=== PATIENT | male | born 1930 | race Caucasian/White ===

== ENCOUNTER → 2016-05-23 | Outpatient (REF) | payer MEDICARE ==
[~2016-05-23] MED LIST: /ESOM40CA OR; CELE20TA OR; KEPPRA PO; MEGACE ES PO; MULTIVIT PO; SYNT50TA OR; THIA100T OR
[2016-05-27 00:07] LABS: PHENOBARBITAL (PRIMIDONE) None Detected ug/mL (15-40)
== END ==
LOC: M LAB REF 12:38
PROVIDERS: ATTEND Internal Medicine
DX: G25.0 Essential tremor (principal)

== ENCOUNTER 2016-07-23 16:43 | Inpatient (IN) | payer MEDICARE ==
[~2016-07-23] VITALS: Ht 177.8 cm; Wt 95.9 kg
[2016-07-23] MEDS ORDERED: PRIM250T5 PO (17:13)
[2016-07-23] MEDS ORDERED: VITA100T2 PO (17:13)
[2016-07-23] MEDS ORDERED: ERGO500014 PO (17:13)
[2016-07-23] MEDS ORDERED: VALS1TAB46 PO (17:26)
[2016-07-23] MEDS ORDERED: MOBI7.5T10 PO (17:26)
[2016-07-23] MEDS ORDERED: AMLO5TAB2 PO ×2 (17:26→19:31)
[2016-07-23] MEDS ORDERED: ATOR1TAB19 PO (17:26)
[2016-07-23] MEDS ORDERED: NS 1,000 ML IV ONE (18:15)
[2016-07-23] MEDS ORDERED: AMLO25TA PO (18:16)
[2016-07-23 18:22] LABS: BASO % 0.4 % (0.0-1.0); EOS # 0.1 K/mm3 (0.0-0.50); EOS % 2.8 % (0.0-3.0); LARGE UNSTAINED CELL # 0.2 K/mm3 (0.0-0.4); LARGE UNSTAINED CELL % 5.4 % (0.0-4.0); LYMPH # 1.1 K/mm3 (1.5-4.5); LYMPH % 24.1 % (24.0-44.0); MEAN CORPUSCULAR HEMOGLOBIN 29.5 pg (27.0-33.0); MEAN CORPUSCULAR VOLUME 89.3 fl (80.0-96.0); MONO # 0.4 K/mm3 (0.0-0.8); NEUTROPHILS # 2.6 K/mm3 (1.8-7.7); NEUTROPHILS % 58.2 % (36.0-66.0); PLATELET COUNT, AUTOMATED 205 k/mm3 (150-450); WHITE BLOOD COUNT 4.4 K/mm3 (4.0-10.0)
[2016-07-23 18:41] LABS: CALCIUM LEVEL 8.4 MG/DL (8.8-10.2); CREATININE FOR GFR 1.57 MG/DL (0.70-1.30); GLOMERULAR FILTRATION RATE 45.1 (>35); POTASSIUM SERUM 4.2 MEQ/L (3.5-5.1)
[2016-07-23] MEDS ORDERED: VITMTA PO (19:31)
[2016-07-23] MEDS ORDERED: [UNRECOGNIZED DRUG - CODE] PO (19:31)
[2016-07-23] MEDS ORDERED: CITA20TA4 PO (19:31)
[2016-07-23] MEDS ORDERED: SYNT100T PO (19:31)
[2016-07-23] MEDS ORDERED: NEXI40CA PO (19:31)
[2016-07-23] MEDS ORDERED: NS 1,000 ML IV SCH (19:38)
[2016-07-23] MEDS ORDERED: ONDANSETRON 4MG/2ML VIAL (J2405) IV PRN (19:45)
--- NOTE | 2016-07-23 20:10 | REPUSA ---
CLINICAL HISTORY: Trauma. TECHNIQUE: Multiple axial CT images were obtained through the brain without IV contrast material. COMMENTS: There is normal configuration of sella turcica. There are no intra or extra-axial collections. There is no mass effect or midline shift. There is no evidence of hematoma formation. No hydrocephalus is p resent. The ventricles are symmetrical. No abnormal calcifications are present. There is diffuse age-appropriate cerebellar and cerebral atrophy with proportionally dilated ventricl es and cortical sulci. There are bilateral periventricular and subcortical white matter hypolucencies compatible with mild c hronic microvascular disease. Otherwise, no significant focal abnormalities are seen either in the posterior fossa or supratentoria l compartment. IMPRESSION: 1. Age-appropriate cerebellar and cerebral atrophy. 2. Mild chronic microvascular disease. 3. No evidence of acute intracranial pathology. Thank you for your kind referral of this patient.
--- NOTE | 2016-07-23 20:20 | REPUSA ---
CLINICAL HISTORY: Trauma. TECHNIQUE: Multiple axial images were obtained through the cervical spine. Images were also reconstru cted in coronal and sagittal planes. The study was performed without IV contrast. COMMENTS: There is no fracture or spondylolisthesis visualized. The paraspinal soft tissues are unremarkable. T here are no lytic or blastic lesions. Straightening of cervical lordosis is seen, suggesting muscular spasm. There is evidence of severe mu ltilevel disk disease, demonstrated by marked osteophytosis, disk space height loss and endplate scle rosis. IMPRESSION: 1. No fracture or spondylolisthesis. 2. Straightening of cervical lordosis is seen, suggesting muscular spasm. 3. Severe multilevel spondylosis. Thank you for your kind referral of this patient.
[2016-07-23 21:15] VITALS: BP 143/72
[2016-07-23 21:16] VITALS: BP 95/50
[2016-07-23] MEDS: HEPARIN SOD (PORCINE) 5000 UNITS/ML VIAL SC SCH (21:46)
[2016-07-24] VITALS (11 sets, daily range): BP systolic 105–198; BP diastolic 60–87
[2016-07-24] LABS: MAGNESIUM LEVEL 1.9 MG/DL (1.8-2.4)
[2016-07-24] MEDS ORDERED: MAG SULF 1GM/100ML (MAG RUN) 1 GM in APPROPRIATE DILUENT 1 EA IV ONE (00:30)
--- NOTE | 2016-07-24 02:43 | HPE ---
DATE OF ADMISSION: 07/23/2016 PRIMARY CARE PROVIDER: Dr. Candy Sutton CHIEF COMPLAINT: Fall. HISTORY OF PRESENT ILLNESS: The patient is an 85-year-old man who over the last 2-3 days has been having a cough. His daughter, whom he has been staying with, also has a cough. He tells me that he has not been eating or drinking very well for the last several days. He denies fevers, chills, chest pain, or shortness of breath associated with it. He denies significant body aches. However, he has been feeling lightheaded and weak when standing for the last day. This afternoon after being seated and eating lunch for two hours, he stood up quickly and attempted to walk away from the table when he collapsed. As per daughter and son-in-law who were present at the time and witnessed the fall, he was unconscious for a few seconds and did hit his head, but after only a few seconds he was able to answer questions. He appeared very pale to them. The patient denies any nausea prior to the fall. No chest pain, no shortness of breath. There was no bowel or bladder incontinence. No headaches or change in his health other than mentioned above. PAST MEDICAL HISTORY: 1. Hypothyroidism. 2. Gastroesophageal reflux disease. 3. Dyslipidemia. 4. Hypertension. 5. Peripheral vascular disease. 6. Essential tremor. 7. 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 8. History of alcohol abuse in the distant past. 9. Depression. ALLERGIES: No known drug allergies. HOME MEDICATIONS: - Norvasc 5 mg daily - vitamin D 50,000 units as directed - valsartan 80 mg at bedtime - [employer] Plus for the last three days - atorvastatin 10 mg daily - citalopram 20 mg daily - Nexium 40 mg daily - Synthroid 100 mcg daily - multivitamin one tablet daily - primidone 250 mg daily - thiamine 100 mg daily PAST SURGICAL HISTORY: Right-sided facial reconstruction and right hand surgery both in the distant past. FAMILY HISTORY: Noncontributory. REVIEW OF SYSTEMS: Negative other than history of present illness (HPI). SOCIAL HISTORY: The patient stays with his daughter and son-in-law. 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 No tobacco use. PHYSICAL EXAMINATION: Temperature 97.8, pulse 78, blood pressure 120/67 while laying supine, 83/43 upon standing, oxygen saturation 95% in room air. GENERAL: He is a pleasant, elderly, man lying flat on the stretcher, appears in no acute distress. HEENT: He has an abrasion over her right periorbital area, otherwise cranial nerves II-XII are grossly intact. He has dry mucous membrans. No elevation of central venous pressure (CVP). CARDIOVASCULAR: S1, S2, regular. No distant heart sounds appreciated. RESPIRATORY EXAM: Clear. ABDOMEN: Obese. EXTREMITIES: No clubbing, cyanosis, or edema. LABORATORY DATA: WBC 4.4, hemoglobin 12.5, hematocrit 37.8, platelet count is 205. Chemistry panel: Sodium 135, potassium 4.2, chloride 97, bicarbonate 24, BUN 19, creatinine 1.5, most recent baseline we have is from five years ago and at that time his creatinine was 0.9. He has one set of cardiac enzymes which is negative. IMAGING: The patient had a chest x-ray that is yet to be read. Patient has also had a CT scan of his cervical spine without contrast and CT of his head, both of which have not been read yet. ASSESSMENT AND PLAN: This is an 85-year-old man with orthostasis likely secondary to dehydration related to a upper respiratory infection (URI). 1. Orthostasis. There was no concerning prodromal symptoms. We will admit him to the progressive care unit, monitor him on telemetry for 24 hours and trend his cardiac enzymes. However, there is no concerning palpitations or cardiac symptoms prior to the onset and as such I do not think an echocardiogram is indicated. The patient at the present time has no neurological deficits. He does not appear to be post ictal. He does appear to be dehydrated and has recently been fighting off a URI. I suspect that this is simple dehydration, and as such we will continue hydrating him with normal saline at 75 mL/hr. Recheck orthostatics in the morning. I will have him evaluated by physical therapy. We will check neuro checks every four hours. 2. URI. The patient does not appear to have an obvious pneumonia. He does not appear septic. For the time being, I will hold off on antibiotics. Check a respiratory polymerase chain reaction (PCR) panel as I suspect that this is more of a viral URI. Continue with supportive care with Tylenol. 3. Acute kidney injury. It was unclear what the patient's most recent baseline is, but it does appear to be a deviation. I would not be surprised as he looks quite dehydrated. We will provide him with normal saline and recheck his BMP in the morning. 4. Dyslipidemia. Continue with atorvastatin. 5. Depression. Continue with citalopram. 6. Hypothyroidism. Continue with levothyroxine. We will check a TSH. 7. Gastroesophageal reflux disease. Continue with Protonix. 8. Central tremor. Continue with primidone. 9. History of alcohol abuse many years in the past. Continue with his thiamine. 10. Deep vein thrombosis (DVT) prophylaxis. Patient will be on heparin. DISPOSITION: The patient has been admitted to the PCU.
[2016-07-24] MEDS: OSELTAMIVIR PHOSPHATE 75 MG CAP (TAMIFLU) PO SCH ×3 (02:58→20:46)
[2016-07-24] MEDS: LEVOTHYROXINE 0.1 MG TAB (100 MCG) PO SCH (06:02)
[2016-07-24 06:48] LABS: MEAN CORPUSCULAR HEMOGLOBIN 29.8 pg (27.0-33.0); MEAN CORPUSCULAR HGB CONC 33.3 g/dl (32.0-36.5); MEAN CORPUSCULAR VOLUME 89.4 fl (80.0-96.0); RED CELL DISTRIBUTION WIDTH 13.4 % (11.5-14.5); WHITE BLOOD COUNT 3.6 K/mm3 (4.0-10.0)
[2016-07-24 07:11] LABS: ANION GAP 10 MEQ/L (8-16); BLOOD UREA NITROGEN 16 MG/DL (7-18); CALCIUM LEVEL 7.9 MG/DL (8.8-10.2); CARBON DIOXIDE LEVEL 26 MEQ/L (21-32); CHLORIDE LEVEL 100 MEQ/L (98-107); GLOMERULAR FILTRATION RATE > 60.0 (>35); GLUCOSE, FASTING 84 MG/DL (83-110); POTASSIUM SERUM 4.4 MEQ/L (3.5-5.1); SODIUM LEVEL 136 MEQ/L (136-145)
--- NOTE | 2016-07-24 07:33 | REP ---
Clinical: Syncope . Comparison: 11/24/2011. Technique: PA and lateral. Findings: The mediastinum and cardiac silhouette are normal. The lung riddle are clear and without acute consolidation, effusion, or pneumothorax. Stable calcified granuloma in the right mid lung zone unchanged. The skeletal structures are intact and normal. Impression: 1. No acute cardiopulmonary process. Signed by Henrik Mcintyre MD 07/24/2016 07:25 A
[2016-07-24] MEDS ORDERED: NS 1,000 ML IV SCH ×2 (08:45→09:30)
[2016-07-24] MEDS ORDERED: amLODIPine 5 MG TAB PO SCH (09:00)
[2016-07-24] MEDS: MULTIVITAMINS/MINERALS THERAP 1 TAB PO SCH (09:37)
[2016-07-24] MEDS: PANTOPRAZOLE 40MG TAB (PROTONIX) PO SCH (09:37)
[2016-07-24] MEDS: PRIMIDONE 250 MG TAB PO SCH (09:37)
[2016-07-24] MEDS: THIAMINE 100 MG TAB PO SCH (09:37)
[2016-07-24] MEDS: HEPARIN SOD (PORCINE) 5000 UNITS/ML VIAL SC SCH ×2 (09:37→20:46)
[2016-07-24] MEDS: CitaloPRAM (CeleXA) 20 MG TAB PO SCH (09:37)
[2016-07-24] MEDS: ATORVASTATIN 10 MG TAB PO SCH (09:37)
[2016-07-24 10:30] LABS: FOLATE 13.2 NG/ML (>5.4)
--- NOTE | 2016-07-24 12:27 | ECGEPIP ---
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
--- NOTE | 2016-07-24 14:41 | IPN ---
DATE OF SERVICE: 07/24/2016 The time the patient was seen was this morning at 9:45. The patient was seen and examined at the bedside. No acute events overnight. The patient did have orthostatic hypotension, however. Otherwise, the patient stated that he is feeling better. Denies any fever or chills, any chest pain, trouble breathing, abdominal pains, nausea, vomiting, diarrhea, or constipation. He notes that he has now been infected with influenza A. PHYSICAL EXAMINATION: Vital signs: Temperature 98.6, pulse 55, respiration 18, blood pressure 161/77, oxygen was saturating at 97% on room air. General: The patient is a pleasant elderly male who was alert, awake, oriented times three. Does not appear to be in distress. Lying comfortably in bed with head elevated at 30-degree angle. HEENT: Normocephalic, atraumatic. Extraocular motor intact. Mucosa moist. Neck supple. No neck lymphadenopathy. Cardiovascular: Regular rate and rhythm with ectopic beats and at least 2/6 systolic heart murmur. Lungs: Clear to auscultate bilaterally. No wheeze, rales, or rhonchi. Abdomen: Positive bowel sounds. Soft, nontender, nondistended. No peritoneal signs. No ecchymosis. Extremities: No edema, clubbing, or cyanosis. Skin: Warm and dry. Neurologic: Cranial nerves II-XII intact. No focal neurologic deficit. LABORATORIES: WBC 3,6, hemoglobin 11.6, hematocrit 34.6, platelet count of 173, and MCV of 89.4. Sodium 136, potassium 4.4, chloride 100, bicarbonate 26, BUN 16, creatinine 1.2, GFR greater than 60, fasting glucose 84, calcium 7.9, magnesium 2, iron 48, TIBC 319, transferring percentage 15%, ferritin 93, total CK 133, CK-MB 2, troponin 0.11 slightly elevated compared to this morning which was 0.09, vitamin B12 741, folate 13.2. The patient's urinalysis shows 1+ ketones, 1+ blood, trace leukocyte esterase, 7 WBC, and 4 RBC. The patient's urine culture is pending. The patient's respiratory panel shows influenza A H3. No new imaging. ASSESSMENT AND PLAN: An 85-year-old male with past medical history of hypothyroidism, gastroesophageal reflux disease (GERD), dyslipidemia, hypertension, peripheral vascular disease, essential tremor, old basal ganglia, and left thalamic infarct, history of alcohol abuse in the distant past, depression, presented with: 1. Orthostasis with unclear etiology, possibly related to the patient's upper respiratory infection with influenza A. The patient's cardiac marker has been trended one more time this afternoon. Shows a slight elevation. Will continue to trend and to decreasing. Repeat electrocardiogram (EKG) has been done. Will followup. Will continue the patient on gentle hydration for now and continue orthostatics and neurologic checks every 8 hours. 2 . Upper respiratory infection. At this point, does not appear to be pneumonia. Likely secondary to influenza B. Continue to monitor. 3. Acute kidney injury. Improving. Continue to monitor. 4. Dyslipidemia. Continue atorvastatin. 5. Depression. Continue citalopram. 6. Hypothyroidism. Continue levothyroxine. 7. Gastroesophageal reflux disease. Continue Protonix. 8. Central tremor. Continue primidone. 9. History of alcohol abuse many years ago. Continue his thiamine. 10. Deep vein thrombosis (DVT) prophylaxis. Continue heparin. DISPOSITION: The patient does continue to have hypotension, and the patient does have some ectopic heart beats. Will continue the patient on cardiac telemetry and repeat EKG. The patient has been discussed with attending doctor, Dr. Vallejo. My preceptor for this patient encounter was Anton Vallejo MD. The preceptor was physically present in the building during the encounter and was fully available. As needed, all aspects of the patient interview, examination, medical decision making process, and medical care plan development were reviewed and approved by the preceptor. The preceptor is aware and concurs with the plan as stated in the body of this note and will attest to such by his/her cosignature.
[2016-07-24] MEDS: ACETAMINOPHEN TAB 650MG DOSE (2X325MG) PO PRN ×2 (16:11→20:56)
--- NOTE | 2016-07-24 18:16 | ECGEPIP ---
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
[2016-07-25] MEDS ORDERED: SLF 3 ML SYR IV PRN (01:30)
[2016-07-25 03:31] VITALS: BP_SYST 130; BP_SYST 148; BP_DIAS 70; BP_DIAS 74
[2016-07-25 03:33] VITALS: BP 138/78
[2016-07-25] MEDS: ACETAMINOPHEN TAB 650MG DOSE (2X325MG) PO PRN ×4 (03:41→19:54)
[2016-07-25] MEDS: SLF 3 ML SYR IV SCH ×3 (05:18→21:55)
[2016-07-25] MEDS: LEVOTHYROXINE 0.1 MG TAB (100 MCG) PO SCH (05:18)
[2016-07-25 05:49] LABS: MEAN CORPUSCULAR HEMOGLOBIN 28.7 pg (27.0-33.0); MEAN CORPUSCULAR VOLUME 89.6 fl (80.0-96.0); RED CELL DISTRIBUTION WIDTH 13.2 % (11.5-14.5); WHITE BLOOD COUNT 3.8 K/mm3 (4.0-10.0)
[2016-07-25 05:54] LABS: ANION GAP 9 MEQ/L (8-16); BLOOD UREA NITROGEN 12 MG/DL (7-18); CALCIUM LEVEL 7.8 MG/DL (8.8-10.2); CARBON DIOXIDE LEVEL 26 MEQ/L (21-32); CHLORIDE LEVEL 98 MEQ/L (98-107); CREATININE FOR GFR 1.21 MG/DL (0.70-1.30); GLOMERULAR FILTRATION RATE > 60.0 (>35); GLUCOSE, FASTING 95 MG/DL (83-110); POTASSIUM SERUM 3.9 MEQ/L (3.5-5.1); SODIUM LEVEL 133 MEQ/L (136-145)
[2016-07-25 08:00] VITALS: BP 141/85
[2016-07-25 10:00] VITALS: BP_SYST 143; BP_SYST 154; BP_DIAS 86; BP_DIAS 87; BP_DIAS 89
[2016-07-25] MEDS: HEPARIN SOD (PORCINE) 5000 UNITS/ML VIAL SC SCH ×2 (10:17→19:54)
[2016-07-25] MEDS: MULTIVITAMINS/MINERALS THERAP 1 TAB PO SCH (10:17)
[2016-07-25] MEDS: CitaloPRAM (CeleXA) 20 MG TAB PO SCH (10:17)
[2016-07-25] MEDS: ATORVASTATIN 10 MG TAB PO SCH (10:17)
[2016-07-25] MEDS: PRIMIDONE 250 MG TAB PO SCH (10:17)
[2016-07-25] MEDS: THIAMINE 100 MG TAB PO SCH (10:17)
[2016-07-25] MEDS: PANTOPRAZOLE 40MG TAB (PROTONIX) PO SCH (10:17)
[2016-07-25] MEDS: OSELTAMIVIR PHOSPHATE 75 MG CAP (TAMIFLU) PO SCH ×2 (10:20→19:55)
[2016-07-25 11:00] VITALS: BP_SYST 144; BP_SYST 148; BP_SYST 169; BP_DIAS 82; BP_DIAS 84; BP_DIAS 94
[2016-07-25] MEDS: NS 1,000 ML IV SCH (14:20)
--- NOTE | 2016-07-25 16:37 | ECHO ---
DATE OF PROCEDURE: 07/24/2016 AGE: 85 GENDER: Male HEIGHT: 70 inches WEIGHT: 213 pounds BODY SURFACE AREA: 2.15 m2 PATIENT LOCATION: Inpatient, PCU, room 3220 REFERRING PHYSICIAN: Dr. Jannet Sheriff INDICATION: Syncope. 2-D MEASUREMENTS: RV: 2.9 cm LV: 4.3 cm Septum: 1.3 cm Posterior wall: 1.3 cm Aortic root: 3.7 cm LA: 4.2 cm LVEF: 65% DOPPLER MEASUREMENTS: AV: 1.3 m/s LVOT: 0.9 m/s LVOT diameter: 2.6 cm MV-E: 57, A: 94, EA ratio: 0.6 Early mitral deceleration time: 204 ms E prime: 8, A prime: 13, EE prime ratio: 7 PV: 0.8 m/s Pulmonary artery acceleration time: 130 ms PASP: 21 mmHg IVC: 2.1 cm COMMENTS: Normal sinus rhythm with first-degree AV block. Bouts of ventricular bigeminy. Mildly dilated left atrium, but normal left ventricular size. Right heart chamber sizes were also normal. Left ventricle (LV) wall thickness was mildly increased symmetrically. On real-time imaging from the parasternal and apical projections wall motion was symmetrical and hyperkinetic. Mildly thickened mitral annulus, but normal leaflet thickness and excursion with no posterior systolic buckling. Three equal size aortic cusps with marginally thickened cusp edges, but adequate cusp separation. Normal aortic root size. No apparent intracardiac mass or pericardial effusion. Color flow Doppler study taken from the parasternal and apical projection showed trace mitral and tricuspid, but no aortic insufficiency. Guided continuous wave Doppler of his aortic valve showed a normal peak systolic velocity against LV outflow tract obstruction. Pulsed and continuous wave Doppler of his LV inflow tract taken from the apical four-chamber projection showed normal diastolic filling velocities against mitral stenosis. There was more prominent late diastolic/atrial dependent filling pattern. A degree of LV diastolic dysfunction was confirmed by a prolonged early mitral deceleration time and tissue Doppler of his mitral annulus. However, his current estimated mean left atrial pressure was well within normal limits. Pulsed and continuous wave Doppler of his pulmonary trunk showed a normal peak systolic velocity against RV outflow tract obstruction. His pulmonary artery acceleration time was normal against an elevated pulmonary vascular resistance. We attempted to further estimate his right ventricular systolic pressure using guided continuous wave Doppler of his tricuspid valve, but could not get a clear spectral envelope. Normal inferior vena cava (IVC) size and collapse against an elevated central venous pressure. CONCLUSIONS: Unable to detect a structural or functional abnormality to account for the patient's syncopal spell. The patient does have baseline first-degree atrioventricular (AV) block and frequent isolated premature ventricular contraction (PVC) occasionally occurring in the bigeminal pattern. Mild concentric left ventricle hypertrophy with preserved systolic function. Mildly dilated left atrium with Doppler evidence of impairment of LV diastolic function, but currently normal estimated mean left atrial pressure. Normal right heart chamber sizes and Doppler sign of pulmonary arterial pressure. Mild mitral annular thickening and mild aortic valvular sclerosis without functional valvular abnormality.
[2016-07-25 19:15] VITALS: BP 139/87
--- NOTE | 2016-07-25 20:17 | IPN ---
DATE: 07/25/2016 Time patient was seen was this morning at 9:45 a.m. Patient has been seen and examined at bedside. No acute event overnight. Patient is feeling better and feeling stronger. He stated his breathing has improved as well. He denies any chest pain, any abdominal pains, nausea, vomiting, diarrhea, or constipation. Denies any other current new complaints. PHYSICAL EXAMINATION: VITAL SIGNS: Temperature 97, pulse 67, respirations 18, blood pressure 144/85, oxygen was saturating at 95% on room air. Patient's orthostatic blood pressure was done and shows 169/94 supine, 148/84 standing, and 144/82 sitting. GENERAL: Patient is an obese, pleasant, elderly male who was alert, awake, oriented times three. Does not appear to be in distress, resting comfortably in bed with head elevated at 30 degrees. HEENT: Normocephalic, atraumatic. Extraocular motors intact. Mucous moist. Neck supple. No neck lymphadenopathy. CARDIOVASCULAR: Regular rate and rhythm, normal S1, S2, with ectopic beats and 2/6 systolic heart murmur. LUNGS: Clear to auscultation bilaterally. No wheezes, rales, or rhonchi. ABDOMEN: Obese, positive bowel sounds, soft, nontender, nondistended. No peritoneal signs. No ecchymosis. EXTREMITIES: No edema, clubbing, or cyanosis. SKIN: Warm and dry. NEUROLOGIC: Cranial nerves II-XII intact. No focal neurological deficit. LABORATORY DATA: WBC 3.8, hemoglobin 11.3, hematocrit 35.2, platelet count 188, MCV 89.6. Sodium 133, potassium 3.9, chloride 98, bicarbonate 26, BUN 12, creatinine 1.21, GFR greater than 60, glucose 95, calcium 7.8, troponin 0.1, yesterday was 0.11, it has been trending down. No new cultures. No new imaging. Patient's echocardiogram is pending. ASSESSMENT AND PLAN: 85-year-old male with past medical history of hypothyroidism, gastroesophageal reflux disease (GERD), dyslipidemia, hypertension, peripheral vascular disease, essential tremor, old basal ganglia and left thalamic infarction, history of alcohol abuse in the distant past, and depression presented with: 1. Orthostasis with unclear etiology, possibly secondary to patient's upper respiratory infection with influenza A. Patient's cardiac markers have been trending down from 0.11 to 0.1. Patient himself denies any chest pain or trouble breathing. Repeat EKG did not show any abnormalities. Patient, however, still has orthostatic hypotension. Will continue patient on gentle hydration for now and continue neurologic checks every 8 hours. Echocardiogram was ordered, result is pending, will followup. 2. Upper respiratory infection, secondary to influenza A. Continue to monitor. 3. Acute kidney injury, improving. Continue to monitor. 4. Dyslipidemia. Continue atorvastatin. 5. Depression. Continue citalopram. 6. Hypothyroidism. Continue levothyroxine. 7. Gastroesophageal reflux disease (GERD). Continue Protonix. 8. Essential tremor. Continue primidone. 9. History of alcohol abuse many years ago. Continue his thiamine. 10. Deep venous thrombosis (DVT) prophylaxis. Continue subcutaneous heparin. DISPOSITION: Patient does still have orthostatic hypotension. However, his symptoms have improved. He no longer has any fever, was breathing normally, no chest pains. Will followup with echocardiogram result. Once confirmed it is normal, will discharge patient home, likely tomorrow. Patient is currently a FULL CODE. Patient has been discussed with attending doctor, Dr. Nelson. My preceptor for this patient encounter was Dr. Dominique Nelson. The preceptor was physically present in the building during the encounter and was fully available. As needed, all aspects of the patient interview, examination, medical decision making process, and medical care plan development were reviewed and approved by the preceptor. The preceptor is aware and concurs with the plan as stated in the body of this note and will attest to such by her cosignature.
[2016-07-26] MEDS: NS 1,000 ML IV SCH (03:33)
[2016-07-26] MEDS: LEVOTHYROXINE 0.1 MG TAB (100 MCG) PO SCH (05:29)
[2016-07-26] MEDS: ACETAMINOPHEN TAB 650MG DOSE (2X325MG) PO PRN ×2 (05:29)
[2016-07-26] MEDS: SLF 3 ML SYR IV SCH (05:29)
[2016-07-26 06:00] VITALS: BP_SYST 132; BP_SYST 138; BP_SYST 140; BP_DIAS 80; BP_DIAS 84
[2016-07-26 07:14] LABS: MEAN CORPUSCULAR HEMOGLOBIN 28.5 pg (27.0-33.0); MEAN CORPUSCULAR HGB CONC 32.1 g/dl (32.0-36.5); MEAN CORPUSCULAR VOLUME 88.9 fl (80.0-96.0); RED CELL DISTRIBUTION WIDTH 13.2 % (11.5-14.5); WHITE BLOOD COUNT 3.2 K/mm3 (4.0-10.0)
[2016-07-26 07:33] LABS: ANION GAP 8 MEQ/L (8-16); BLOOD UREA NITROGEN 9 MG/DL (7-18); CALCIUM LEVEL 7.8 MG/DL (8.8-10.2); CARBON DIOXIDE LEVEL 27 MEQ/L (21-32); CHLORIDE LEVEL 100 MEQ/L (98-107); CREATININE FOR GFR 1.18 MG/DL (0.70-1.30); GLOMERULAR FILTRATION RATE > 60.0 (>35); GLUCOSE, FASTING 95 MG/DL (83-110); POTASSIUM SERUM 4.5 MEQ/L (3.5-5.1); SODIUM LEVEL 135 MEQ/L (136-145)
[2016-07-26] MEDS ORDERED: OSEL75CA2 PO (09:22)
[2016-07-26] MEDS: HEPARIN SOD (PORCINE) 5000 UNITS/ML VIAL SC SCH (09:23)
[2016-07-26] MEDS: MULTIVITAMINS/MINERALS THERAP 1 TAB PO SCH (09:23)
[2016-07-26] MEDS: OSELTAMIVIR PHOSPHATE 75 MG CAP (TAMIFLU) PO SCH (09:23)
[2016-07-26] MEDS: THIAMINE 100 MG TAB PO SCH (09:24)
[2016-07-26] MEDS: PANTOPRAZOLE 40MG TAB (PROTONIX) PO SCH (09:24)
[2016-07-26] MEDS: ATORVASTATIN 10 MG TAB PO SCH (09:24)
[2016-07-26] MEDS: CitaloPRAM (CeleXA) 20 MG TAB PO SCH (09:24)
[2016-07-26] MEDS: PRIMIDONE 250 MG TAB PO SCH (09:24)
--- NOTE | 2016-07-26 14:38 | DSES ---
DATE OF ADMISSION: 07/23/2016 DATE OF DISCHARGE: 07/26/2016 ADMISSION DIAGNOSES: 1. Orthostasis. 2. Upper respiratory infection. 3. Acute kidney injury. 4. Dyslipidemia. 5. Depression. 6. Hypothyroidism. 7. Gastroesophageal reflux disease (GERD). 8. Essential tremor. 9. History of alcohol abuse. DISCHARGE DIAGNOSES: 1. Orthostasis with unclear etiology, possibly secondary to patient's upper respiratory infection with influenza A. 2. Upper respiratory infection secondary to influenza A. 3. Acute kidney injury. 4. Dyslipidemia. 5. Gastroesophageal reflux disease (GERD). CONSULTANTS: None. PROCEDURES AND IMAGING: Patient had a portable chest x-ray in the emergency room on 07/24/2016, which showed no acute processes. Patient had a CT head without contrast, also on admission, 07/23/2016, showed age-appropriate cerebellar and cerebral atrophy, mild chronic microvascular disease. No evidence of acute intracranial pathology. Patient had a cervical CT spine 07/23/2016, showed no fracture or spondylolisthesis, straightening of cervical lordosis, such as develop muscle spasm, severe multiple level spondylosis. Patient had an echocardiogram which showed unable to detect a structural or functional abnormalities to account for patient's syncopal spell. Patient does have a slight first degree atrioventricular (AV) block and frequent, isolated premature ventricular contractions, occasionally occurring in the bigeminal pattern, and mild concentric left ventricle hypertrophy with preserved systolic function. Also, mildly dilated left atrium with Doppler evidence of impaired left ventricular diastolic function. Also, mild mitral annular thickening and mild aortic valvular sclerosis, without functional valvular abnormality. HISTORY OF PRESENT ILLNESS: An 85-year-old male who, over the past two to three days, has been having a cough. Patient's daughter, whom he stayed with, also has a cough. Patient told admitting physician that he has not been eating or drinking well for the past several days. Denies any fever or chills, chest pain , shortness of breath. He also denied any significant body aches; however, he has been feeling lightheaded and weak when standing for the last day and on the day of admission, in the afternoon, after he had been sitting and eating lunch for two hours, he stood up quickly and attempted to walk away from the table, and he collapsed, as per patient's daughter and son-in-law, who were also present at the time and witnessed the fall. He was unconscious for a few seconds and did hit his head; however, after only a few seconds, he was able to answer questions. He appeared very pale and then patient denied any nausea prior to the fall. No chest pain, no shortness of breath and no bowel or bladder incontinence. No headaches or changes in health other than mentioned above. HOSPITAL COURSE: On the day of admission, patient was placed in the progressive care unit (PCU), monitored under cardiac telemetry, and the patient's cardiac enzymes were trended. Patient had no further neurological symptoms. Patient was started on IV hydration for possible dehydration and a respiratory panel was ordered for suspected viral upper respiratory infection. Over the next few days , patient's symptoms improved. Acute kidney injury resolved. Respiratory panel came back showing influenza A, and his orthostasis also improved with fluid. In addition, patient also had an echocardiogram done and it did not show significant structural abnormalities. Patient, however, does have a first degree atrioventricular (AV) block and both ventricular bigemini and premature ventricular contractions (PVCs). After the results of the echocardiogram came back, patient was ready to be discharged on a few more days of Tamiflu. DISCHARGE: Back to home. DISCHARGE CONDITION: Stable. ACTIVITY: As tolerated. DIET: Regular diet. DISCHARGE MEDICATIONS: NEW MEDICATIONS: - Tamiflu 75 mg one tablet by mouth twice a day for two more days CONTINUE HOME MEDICATIONS: - Aixa-[place] Plus 1 pack by mouth daily as needed - amlodipine 5 mg 1 tablet by mouth daily - atorvastatin 10 mg 1 tablet by mouth daily - citalopram 20 mg 1 tablet by mouth daily - ergocalciferol 50,000 units 1 tablet by mouth as directed - Nexium 40 mg 1 tablet by mouth daily - levothyroxine 100 mcg 1 tablet by mouth every morning - multivitamin 1 tablet by mouth daily - primidone 250 mg 1 tablet by mouth daily - thiamine 100 mg 1 tablet by mouth daily - valsartan 80 mg 1 tablet by mouth at bedtime FOLLOWUP: Patient should follow up with primary care provider (PCP) within one week. ADDITIONAL INSTRUCTIONS: If patient develops any increased weakness or dizziness that persists, patient should call PCP or go to the emergency room. Patient has been discussed with attending doctor, Dr. Ellis. My preceptor for this patient encounter was Dr. Ellis. The preceptor was physically present in the building during the encounter and was fully available as needed. All aspects of the patient interview, examination, medical decision-making process, and medical care plan development were reviewed and approved by the preceptor. The preceptor is aware and concurs with the plan as stated in the body of this note and will attest to such by his/her co-signature. Attending note: patient seen and examined independently. All aspects of medical treatment discussed with resident and agree with above course of action MAN
== END 2016-07-26 12:33 | disposition home or self-care (01) | DRG 194 ==
LOC: M ED 16:43 → EDBD 16:43 → M ED INP 19:38 → M PCU 07-24 16:18 → M MSPAV 07-25 19:12
PROVIDERS: ADMIT Internal Medicine; ATTEND Hospitalist
DX: J10.1 Influenza due to other identified influenza virus with other respiratory manifestations (principal); N17.9 Acute kidney failure, unspecified; E03.9 Hypothyroidism, unspecified; K21.9 Gastro-esophageal reflux disease without esophagitis; E78.5 Hyperlipidemia, unspecified; I10 Essential (primary) hypertension; E86.0 Dehydration; I95.1 Orthostatic hypotension; I73.9 Peripheral vascular disease, unspecified; F10.21 Alcohol dependence, in remission; I44.0 Atrioventricular block, first degree; E66.9 Obesity, unspecified; G25.0 Essential tremor; F32.9 Major depressive disorder, single episode, unspecified; Z86.73 Personal history of transient ischemic attack (TIA), and cerebral infarction without residual deficits; Z79.899 Other long term (current) drug therapy

== ENCOUNTER 2018-07-02 13:08 | Emergency (ER) | payer MEDICARE ==
[~2018-07-02] VITALS: Ht 175.3 cm; Wt 95.5 kg
[~2018-07-02 13:08] MED LIST changes: +AMLO25TA PO; +AMLO5TAB6 PO; +ATOR1TAB19 PO; +CITA20TA4 PO; +ERGO500014 PO; +MOBI4TAB PO; +NEXI40CA PO; +OSEL75CA2 PO; +PRIM250T8 PO; +SYNT100T PO; +VALS1TAB46 PO; +VITA100T8 PO; +VITMTA PO; +[UNRECOGNIZED DRUG - CODE] PO
[2018-07-02] MEDS ORDERED: BREO1INH PO (13:33)
[2018-07-02] MEDS ORDERED: OMEP40CA2 PO (13:33)
[2018-07-02] MEDS ORDERED: METO37.5 PO (13:33)
--- NOTE | 2018-07-02 15:04 | REP ---
LEFT HAND, FOUR VIEWS: HISTORY: Fall. A faint linear lucency is present in the head of the proximal phalange of the fifth digit. This may represent a nondisplaced fracture. There is no dislocation. There is narrowing of the carpometacarpal, metacarpal phalangeal, intermediate, and distal interphalangeal joint spaces. IMPRESSION: There is a faint linear lucency in the head of the proximal phalange of the fifth digit. This may represent a nondisplaced fracture. Electronically Signed by Jason Mahajan MD 07/02/2018 03:12 P
[2018-07-02 15:48] VITALS: BP 129/71
[2018-07-02 15:50] LABS: BASO # 0.1 10^3/uL (0.0-0.2); BASO % 0.7 % (0.0-1.0); EOS # 0.2 10^3/uL (0.0-0.50); EOS % 2.5 % (0.0-3.0); HEMATOCRIT 40.4 % (42.0-52.0); HEMOGLOBIN 12.5 g/dl (13.5-17.5); LYMPH # 1.7 10^3/uL (1.5-4.5); MEAN CORPUSCULAR HEMOGLOBIN 28.2 pg (27.0-33.0); MEAN CORPUSCULAR HGB CONC 30.9 g/dl (32.0-36.5); MONO # 0.7 10^3/uL (0.0-0.8); NEUTROPHILS # 4.6 10^3/uL (1.8-7.7); NEUTROPHILS % 63.5 % (36.0-66.0); PLATELET COUNT, AUTOMATED 291 10^3/uL (150-450); RED BLOOD COUNT 4.44 10^6/uL (4.30-6.10); WHITE BLOOD COUNT 7.3 10^3/uL (4.0-10.0)
--- NOTE | 2018-07-02 15:52 | REP ---
CT Head without contrast HISTORY: Syncope COMPARISON: 07/23/2016 Areas of decreased attenuation are present in the periventricular and subcortical white matter. This represents small-vessel ischemic disease. There is no intraparenchymal hemorrhage, acute infarct, mass or midline shift. The ventricular system and cortical sulci as well as subarachnoid space in the posterior fossa are dilated consistent with mild volume loss. There is no extra cerebral collection. There is no fracture. The visualized sinuses are clear. IMPRESSION: 1. Small vessel ischemic disease. 2. Mild volume loss. Electronically Signed by Jason Mahajan MD 07/02/2018 03:43 P
[2018-07-02 16:03] LABS: INR 0.96; PROTHROMBIN TIME 12.9 SECONDS (12.1-14.4)
[2018-07-02 16:04] LABS: PARTIAL THROMBOPLASTIN TIME 28.6 SECONDS (25.4-37.6)
[2018-07-02 16:18] LABS: CALCIUM LEVEL 8.9 MG/DL (8.8-10.2); CREATININE FOR GFR 1.27 MG/DL (0.70-1.30); GLOMERULAR FILTRATION RATE 57.4 (>35); MB/CK RELATIVE INDEX 1.04 (< OR =4); POTASSIUM SERUM 5.2 MEQ/L (3.5-5.1); THYROID STIMULATING HORMONE 3.47 uIU/ML (0.358-3.740); TROPONIN I 0.03 NG/ML (< 0.10)
--- NOTE | 2018-07-03 06:33 | ECGEPIP ---
Stationary ECG Study [facility] - ED Test Date: 2018-07-02 Pat Name: LEON DING Department: Room: - Gender: M Housing Manager: ct : 1930 Requested By: JOSE Johnson PA-C Order Number: [id number] Reading MD: Jose Oseguera Measurements Intervals [place] Rate: 84 P: 21 RI: 201 QRS: -28 QRSD: 100 T: 29 QT: 361 QTc: 427 Interpretive Statements SINUS RHYTHM WITH FREQUENT VENTRICULAR PREMATURE COMPLEXES BORDERLINE LEFT AXIS DEVIATION SIMILAR TO 07/24/16 Electronically Signed On 07-03-2018 6:33:40 EST by Jose Oseguera
== END 2018-07-02 16:45 | disposition home or self-care (01) ==
LOC: M ED 13:08
DX: S62.645A Nondisplaced fracture of proximal phalanx of left ring finger, initial encounter for closed fracture (principal); R55 Syncope and collapse; W19.XXXA Unspecified fall, initial encounter; Y92.098 Other place in other non-institutional residence as the place of occurrence of the external cause; I49.3 Ventricular premature depolarization; I11.0 Hypertensive heart disease with heart failure; I50.9 Heart failure, unspecified; E78.5 Hyperlipidemia, unspecified; E03.9 Hypothyroidism, unspecified; Z87.891 Personal history of nicotine dependence; Z79.899 Other long term (current) drug therapy; Z79.51 Long term (current) use of inhaled steroids

== ENCOUNTER → 2021-02-18 | Outpatient (REF) | payer MEDICARE ==
[~2021-02-18] MED LIST changes: -/ESOM40CA OR; +AMLO1TAB24 PO; -AMLO5TAB6 PO; +BREO1INH PO; -CITA20TA4 PO; +CITA20TA6 PO; -ERGO500014 PO; +METO37.5 PO; +NEXI1CAP3 OR; +OMEP40CA4 PO; -VALS1TAB46 PO; +VALS1TAB66 PO; +VITA500045 PO
== END ==
LOC: M LAB REF 16:21
PROVIDERS: ATTEND Internal Medicine
DX: L71.8 Other rosacea (principal)

== ENCOUNTER → 2021-06-29 | Outpatient (CLI) | payer MEDICARE ==
[2021-06-29 17:52] LABS: TOTAL PROTEIN 7.8 GM/DL (6.4-8.2)
[2021-06-29 18:04] LABS: FOLATE 18.3 NG/ML; VITAMIN B12 LEVEL 724 PG/ML
[2021-06-29 19:46] LABS: HEMOGLOBIN A1c 5.3 %
[2021-07-01 14:00] LABS: ALBUMIN 4.18 GM/DL (3.29-5.55); ALBUMIN % 53.6 % (55.8-66.1); ALPHA-1-GLOBULIN % 4.7 % (2.9-4.9); BETA-1-GLOBULINS % 5.9 % (4.7-7.2); BETA-2-GLOBULINS % 5.8 % (3.2-6.5)
[2021-07-01 14:01] LABS: ALPHA-1-GLOBULINS 0.37 GM/DL (0.17-0.41); ALPHA-2-GLOBULINS 1.17 GM/DL (0.42-0.99); BETA-1-GLOBULINS 0.46 GM/DL (0.28-0.60); BETA-2-GLOBULINS 0.45 GM/DL (0.19-0.55); GAMMA GLOBULINS 1.17 GM/DL (0.65-1.58)
== END ==
LOC: M PLALAB 15:42
PROVIDERS: ATTEND Psychiatry & Neurology Neurology
DX: E53.8 Deficiency of other specified B group vitamins (principal); E11.9 Type 2 diabetes mellitus without complications; G62.9 Polyneuropathy, unspecified